=== PATIENT | female | born 2000 ===

== ENCOUNTER 2021-04-17 04:20 | Emergency (ER) | payer SELFPAY ==
--- NOTE | 2021-04-17 05:07 | ER ---
Nurse's Notes [facility] Name: Patricia Ferreira Age: 20 yrs Sex: Female : 2000 Arrival Date: 04/17/2021 Time: 04:26 Bed Waiting Private MD: Diagnosis: ED Course: 04/17 04:26 Patient arrived in ED. bp1 04:58 Patient's name was called from ER lobby. No response. lp1 05:07 Patient's name was called from ER lobby. Unable to locate patient. Will disposition as lp1 left without being seen by a provider. Administered Medications: No medications were administered Outcome: 05:07 Patient left the ED. lp1 Signatures: Janeen Pina RN RN lp1 Solange Garcia bp1
== END 2021-04-17 05:07 | disposition left against medical advice (07) ==
LOC: ER 04:20
DX: Z02.9 Encounter for administrative examinations, unspecified (principal)